=== PATIENT | male | born 1990 | race Caucasian/White ===

== ENCOUNTER 2020-02-25 12:11 | Outpatient (NON) | payer OTHER, SELFPAY ==
[2020-02-25 23:36] LABS: SARS-CoV-2 RNA PCR Negative
== END 2020-02-25 12:12 ==
LOC: ANHCOVIDDT 12:12
PROVIDERS: PCP Internal Medicine; Visit Provider Internal Medicine
DX: Z01.812 Encounter for preprocedural laboratory examination (principal); Z20.828 Contact with and (suspected) exposure to other viral communicable diseases
CPT/HCPCS: 87635; C9803; U0003

== ENCOUNTER 2020-03-30 00:12 | Outpatient (CLI) | payer OTHER, SELFPAY ==
[2020-03-30 20:45] LABS: SARS-CoV-2 RNA PCR Negative
== END 2020-03-30 00:13 | disposition home or self-care (01) ==
LOC: ANHCOVIDDT 00:12
PROVIDERS: PCP Internal Medicine; Visit Provider Internal Medicine Gastroenterology
DX: Z01.818 Encounter for other preprocedural examination (principal); Z20.828 Contact with and (suspected) exposure to other viral communicable diseases
CPT/HCPCS: 87635; C9803; U0003

== ENCOUNTER 2020-04-02 01:40 | Day surgery (SDC) | payer OTHER, SELFPAY ==
[2020-03-23 13:39] VITALS: BMI 28.0
[2020-04-02 11:19] VITALS: BP 136/80; PULSE 97; RESP 16; TEMP 36.9; O2SAT 98
[2020-04-02] MEDS: LACTATED RINGERS 1,000 ML 150 ML IV CONT (11:19)
--- NOTE | 2020-04-02 11:33 | WPDANESEPPF ---
Anes - Initial Pre Proc Eval Procedure: Operation Date: 04/02/20 12:30 Proposed Procedures p Esophagogastroduodenoscopy - Julian Cohen MD Date/Time: 04/02/20 11:33 Surgeon: Julian Cohen MD Pre Op Diagnosis: Gerd,Celiac Disease Patient Data Age: 29 Gender: M Height: 5 ft 9 in Weight: 92.5 kg Last Vital Signs Temp 98.4 F 04/02/20 11:19 Pulse 97 04/02/20 11:19 Resp 16 04/02/20 11:19 BP 136/80 04/02/20 11:19 Pulse Ox 98 04/02/20 11:19 Allergies Allergy/AdvReac Type Severity Reaction Status Date / Time Penicillins Allergy Unknown hives Verified 04/02/20 11:18 Home Medications Medication Instructions Recorded Confirmed Type halobetasol propionate 0.01 1 applic TOPICAL DAILY 02/21/20 03/23/20 History %-tazarotene 0.045 % lotion levocetirizine 5 mg tablet 5 mg PO DAILY 02/21/20 03/23/20 History omeprazole 40 mg capsule,delayed 40 mg PO DAILY #90 cap 02/21/20 03/23/20 Rx release Patient hx anesthesia problems: none Family hx anesthesia problems: none PMFSH Past Medical History Medical History (Updated 02/28/20 @ 15:58 by MARIBELL RobinsN-C) Gastroesophageal reflux disease Social History Social History Smoking packs per day: 1 Smoking cigarettes per day: 20.0 Years smoked: 4 Smoking pack-years: 4.00 Smoking status: Former smoker Tobacco type: cigarettes Alcohol intake: never Substance use: never Substance use type: does not use Living arrangements: with family Gender identity (if verbalized by the patient): Male Spiritual care concerns: No Agree to blood products: Yes Anes - Eval Final PreProcedure Day of Procedure 04/02/20 11:33 Patient weight: overweight Heart: regular rate and rhythm Lungs: clear to auscultation Airway: Mallampati scale class II Neurological: alert and oriented Last oral intake: >/= 8 hours ASA classification: II Emergent: no Anesthetic plan: proceed Anesthesia type and monitoring: general GIVS and standard monitoring Informed Consent: The patient's anesthetic plan and its attendant risks and benefits were discussed with the patient/family/POA. Questions were solicited and answers provided to the satisfaction of the patient/family/POA.
--- NOTE | 2020-04-02 11:57 | PM.HPGS ---
History of Present Illness History of Present Illness Consent: Risks, benefits, and alternatives have been discussed and questions answered. Patient agrees to proceed with procedure. Chief complaint: Gerd,Celiac Disease Narrative: Anruag Huff is a 29 year old male with gerd symptoms recently PCP increased ppi, also celiac disease on diet Review of Systems Constitutional: Constitutional: Denies headache(s) and Denies weakness Eyes: Eyes: Denies blurry vision ENT: Reports Normal hearing present, Denies headache(s) and Denies neck pain Cardiovascular: Cardiovascular: Denies chest pain and Denies dyspnea Respiratory: Respiratory: Denies dyspnea Gastrointestinal: Gastrointestinal: Reports no additional gastrointestinal complaints Genitourinary: Genitourinary: Denies dysuria Musculoskeletal: Musculoskeletal: Denies neck pain Integumentary/Breasts: Skin/Breast: Denies dry skin Neurologic: Reports Normal hearing present, Denies headache(s) and Denies weakness Psychiatric: Psychiatric: Denies anxiety Endocrine: Endocrine: Denies change in body appearance Hematologic/Lymphatic: Hematologic/Lymphatic: Denies easy bleeding Allergic/Immunologic: Allergic/Immunologic: Denies urticaria PMF Past Medical History Medical History (Updated 04/02/20 @ 11:58 by Julian Cohen MD) Celiac disease Gastroesophageal reflux disease Social History Social History Smoking packs per day: 1 Smoking cigarettes per day: 20.0 Years smoked: 4 Smoking pack-years: 4.00 Smoking status: Former smoker Tobacco type: cigarettes Alcohol intake: never Substance use: never Substance use type: does not use Living arrangements: with family Gender identity (if verbalized by the patient): Male Spiritual care concerns: No Agree to blood products: Yes Meds Home Medications and Allergies Home Medications Medication Instructions Recorded Confirmed Type halobetasol propionate 0.01 1 applic TOPICAL DAILY 02/21/20 03/23/20 History %-tazarotene 0.045 % lotion levocetirizine 5 mg tablet 5 mg PO DAILY 02/21/20 03/23/20 History omeprazole 40 mg capsule,delayed 40 mg PO DAILY #90 cap 02/21/20 03/23/20 Rx release Allergies Allergy/AdvReac Type Severity Reaction Status Date / Time Penicillins Allergy Unknown hives Verified 04/02/20 11:18 Vital Signs Vital Signs - 24 hr 04/02/20 11:19 Temperature 98.4 F Pulse Rate 97 Respiratory Rate 16 Blood Pressure 136/80 Pulse Oximetry 98 Exam Const: General: comfortable and no acute distress HENMT: General nose exam: Normal nares present Eyes: General: appearance normal, both eyes and all related structures Neck: Neck: no JVD Resp: Auscultation: clear to auscultation bilaterally Cardio: Rate: regular rate Rhythm: regular rhythm GI: Inspection: non-distended GI Palp: Yes Soft to palpation Skin: General skin exam: normal color Neuro: General: gait normal Speech: normal speech Extrem: General: normal to inspection Psych: Mental Status: mental status grossly normal Assessment and Plan Assessment and plan (1) Gastroesophageal reflux disease: Code(s): K21.9 - Gastro-esophageal reflux disease without esophagitis Status: Acute Assessment and Plan: egd with bx (2) Celiac disease: Code(s): K90.0 - Celiac disease Status: Acute
[2020-04-02 12:01] VITALS: BP 98/59; PULSE 99; RESP 26; O2SAT 97
[2020-04-02 12:11] VITALS: BP 109/69; PULSE 98; RESP 23; O2SAT 98
[2020-04-02 12:27] VITALS: BP 111/71; PULSE 90; RESP 24; O2SAT 96
== END 2020-04-02 12:33 | disposition home or self-care (01) ==
PROVIDERS: PCP Internal Medicine; Visit Provider Internal Medicine Gastroenterology
PROC: 0DJ08ZZ Inspection of Upper Intestinal Tract, Via Natural or Artificial Opening Endoscopic (ICD-10-PCS; CPT 43235; principal; 2020-04-02 12:30)
DX: K21.00 Gastro-esophageal reflux disease with esophagitis, without bleeding (principal); K90.0 Celiac disease; K44.9 Diaphragmatic hernia without obstruction or gangrene; K29.50 Unspecified chronic gastritis without bleeding; K29.80 Duodenitis without bleeding; Z87.891 Personal history of nicotine dependence
CPT/HCPCS: 43239; 88305; 88313; J2704; J7120

== ENCOUNTER 2020-07-10 08:21 | Outpatient (CLI) | payer OTHER, SELFPAY | END 2020-07-10 08:22 | disposition home or self-care (01) | LOC: ANHCOVIDVC 08:21 | PROVIDERS: PCP Internal Medicine | DX: Z23 Encounter for immunization (principal) | CPT/HCPCS: 0001A; 91300 ==

== ENCOUNTER 2020-07-31 08:21 | Outpatient (CLI) | payer OTHER, SELFPAY | END 2020-07-31 08:22 | disposition home or self-care (01) | LOC: ANHCOVIDVC 08:21 | PROVIDERS: PCP Internal Medicine | DX: Z23 Encounter for immunization (principal) | CPT/HCPCS: 0002A; 91300 ==

== ENCOUNTER 2020-07-31 09:13 | Emergency (ER) | payer OTHER, SELFPAY ==
--- NOTE | ~2020-07-31 | XR_ITS ---
EXAMINATION: XR foot LT min 3V DATE: 07/31/2020 09:29 INDICATION: Left second and third toe pain post trauma TECHNIQUE: Dorsoplantar, two oblique and lateral views of the left foot were obtained. COMPARISON: None. FINDINGS: There is soft tissue swelling about the base of the third toe with abnormal contour to the base of th e third middle phalanx suspicious for fracture but without evident lucent fracture line or sharply an gulated cortex to more definitively suggest acute fracture. No other lesions suspicious for fracture identified. Mild osteoarthritis characterized by nonuniform joint space narrowing at a few of the int erphalangeal joints. IMPRESSION: 1. Abnormal contour to the base of the left third middle phalanx which could be developmental or seco ndary to fracture which could be either acute or chronic. Reviewed, dictated and finalized at location A. IMPRESSION: 1. Abnormal contour to the base of the left third middle phalanx which could be developmental or secondary to fracture which could be either acute or chronic.
[2020-07-31 09:23] VITALS: BP 127/84; PULSE 78; RESP 16; TEMP 37.1; O2SAT 100
--- NOTE | 2020-07-31 09:35 | ED.GENADULT ---
HPI - General Adult General Chief complaint: Extremity Injury, Lower Stated complaint: INJURED L FOOT Time Seen by Provider: 07/31/20 09:23 Source: patient and RN notes reviewed Mode of arrival: ambulatory Limitations: no limitations History of Present Illness HPI narrative: 29-year-old male presents with left 1st-3rd toe pain for 1 day. Anurag reports having LT foot slammed by bathroom door this morning now has increasing pain. Aleve prior to arrival without relief. Hurts to bear weight. No radiation of pain. No numbness or tingling or loss of mobility. Denies inability to bear weight. 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 No relieving factor. No fever or chills. No suspected foreign body. The patient reports he have not been diagnosed with COVID-19. The patient reports he received 2 [employer] COVID-19 vaccines. The patient reports he is not waiting for the results of a COVID-19 lab test. The patient reports he do not have weakness or fatigue. The patient reports he do not have a new or worsening cough or shortness of breath. Denies chest pain. The patient reports he do not have any rhinorrhea, congestion, loss of taste or smell, sore throat, nausea, vomiting, abdominal pain, and diarrhea. Tolerating po intake well. Denies recent traveling. Denies concerns for COVID-19 or exposures been home with limited outdoor exposure except for essential household needs, work, and return home. At this time, patient is not suspected of having COVID-19. Some parts of this dictation were generated by voice recognition software and may contain typographical and/or grammatical inaccuracies. Related Data Allergies Allergy/AdvReac Type Severity Reaction Status Date / Time Penicillins Allergy Unknown hives Verified 05/29/20 08:26 Review of Systems Review of Systems: Narrative: CONSTITUTIONAL: Denies fever, chills, sweats. EYES: Denies visual changes, redness, discharge. ENT: Denies rhinorrhea, congestion, sore throat, otalgia. CARDIOVASCULAR: Denies chest pain, palpitations, edema. RESPIRATORY: Denies dyspnea, wheezing, cough. GASTROINTESTINAL: Denies abdominal pain, nausea, vomiting, diarrhea. SKIN: Denies rash or itching. MUSCULOSKELETAL: Denies acute back pain or myalgia. Complains of LT 1st-3rd toe pain. NEUROLOGIC: Denies numbness or focal weakness. PSYCHIATRIC: Denies anxiety or depression. All systems reviewed & are unremarkable except as noted in HPI and below. [facility] Past Medical History Medical History (Updated 08/01/20 @ 00:00 by Laquita Momin) Allergies Celiac disease Elevated blood pressure reading Gastroesophageal reflux disease Other and unspecified hyperlipidemia Psoriasis Surgical History Surgical History (Updated 07/31/20 @ 13:27 by TINO Royal) History of left knee surgery Due to a torn patella Family History Family History (Updated 07/31/20 @ 13:34 by TINO Royal) Father Psoriasis Mother Alive and well Social History Social History (Updated 07/31/20 @ 13:35 by TINO Royal) Smoking packs per day: 1 Smoking cigarettes per day: 20.0 Years smoked: 4 Smoking pack-years: 4.00 Smoking status: Former smoker Tobacco type: cigarettes Second hand tobacco smoke exposure: No Smoking end date: 05/01/13 Alcohol intake: current Substance use: never Substance use type: does not use Gender identity (if verbalized by the patient): Male Spiritual care concerns: No Agree to blood products: Yes Comments At time of signature, agree with nurse past medical, surgical, social, and family history. There is no relevant family history pertinent to the presenting complaint. Exam Narrative: Exam Narrative: GENERAL: This is a well-nourished, well-developed patient, in no apparent distress. HEAD: Normocephalic, atraumatic. EYES: PERRL. Sclera clear/white. Vision is grossly intact. CARDIOVASCULAR: Regular rate and rhythm without murmurs, ga
== END 2020-07-31 10:19 | disposition home or self-care (01) ==
PROVIDERS: Emergency Provider Nurse Practitioner Family; PCP Internal Medicine
DX: S90.32XA Contusion of left foot, initial encounter (principal); W23.0XXA Caught, crushed, jammed, or pinched between moving objects, initial encounter; S92.535A Nondisplaced fracture of distal phalanx of left lesser toe(s), initial encounter for closed fracture; Z87.891 Personal history of nicotine dependence; K21.9 Gastro-esophageal reflux disease without esophagitis; K90.0 Celiac disease
CPT/HCPCS: 73630; 99213; G0463

== ENCOUNTER 2021-03-28 12:30 | Emergency (ER) | payer OTHER, SELFPAY ==
--- NOTE | 2021-03-28 12:42 | ED.GENADULT ---
HPI - General Adult General Chief complaint: Upper Respiratory Infection Stated complaint: bodyaches and chills Time Seen by Provider: 03/28/21 12:42 Source: patient Mode of arrival: ambulatory Limitations: no limitations History of Present Illness HPI narrative: 30-year-old male patient presents to the [facility] with complaints of body aches chills and fever that started abruptly today while at religious. Patient states that start about 10 minutes into religious and started feeling very cold achy and patient states he left religious earlier today went home took his temperature and it was 101 and got as high as 102. Patient states he did take some DayQuil which he is feeling much better. Patient states he has not yet had his flu vaccine this year but is fully vaccinated for Covid with a 2 dose regiment. Denies being an coming in contact with anybody with Covid that he is aware of. Related Data Allergies Allergy/AdvReac Type Severity Reaction Status Date / Time Penicillins Allergy Unknown hives Verified 10/01/20 09:23 Review of Systems Review of Systems: CONSTITUTIONAL: Positive fever, body aches and chills, denies sweats. EYES: Denies visual changes, redness, or discharge. ENT: Denies rhinorrhea, congestion, sore throat, or otalgia. CARDIOVASCULAR: Denies chest pain, palpitations, or edema. RESPIRATORY: Denies cough or dyspnea. GASTROINTESTINAL: Denies abdominal pain, nausea, vomiting, or diarrhea. GENITOURINARY: Denies dysuria or hematuria. SKIN: Denies rash or itching. MUSCULOSKELETAL: Denies back pain, joint pain, or myalgia. NEUROLOGIC: Denies headache, numbness, or weakness. PSYCHIATRIC: Denies anxiety or depression. [facility] Past Medical History Medical History Allergies Celiac disease Elevated blood pressure reading Gastroesophageal reflux disease Other and unspecified hyperlipidemia Psoriasis Surgical History Surgical History History of left knee surgery Due to a torn patella tendon (x5 surgeries) - most recent was 2011 Family History Family History Father Psoriasis Mother Alive and well Social History Social History Smoking packs per day: 1 Smoking cigarettes per day: 20.0 Years smoked: 4 Smoking pack-years: 4.00 Smoking status: Former smoker Tobacco type: cigarettes Second hand tobacco smoke exposure: No Smoking end date: 05/01/13 Alcohol intake: current Alcohol use details: 1-2 glasses of wine monthly Substance use: never Substance use type: does not use Gender identity (if verbalized by the patient): Male Sexual Orientation (if Verbalized by the Patient): Straight or Heterosexual Spiritual care concerns: No Agree to blood products: Yes Comments At the time of my signature I agree with nursing past medical history, surgical, social, and family history. There is no relevant family history pertinent to the presenting complaint. Exam Narrative: GENERAL: Well-appearing, well-nourished, and in no acute distress. HEAD: Normocephalic, atraumatic. EYES: PERRLA and EOMI. ENT: Nares clear, no rhinorrhea or epistaxis. Mucous membranes moist. Posterior pharynx with no erythema, tonsillar edema, exudates or lesions present. Bilateral TMs are clear with no erythema or foreign bodies in the canal. NECK: Supple. No lymphadenopathy CHEST: Clear to auscultation. No respiratory distress. HEART: Regular rate and rhythm. No murmur heard. Normal peripheral pulses. ABDOMEN: Soft, nontender, nondistended, normal active bowel sounds. EXTREMITIES: Normal range of motion. No edema. SKIN: Warm, dry, no rash. NEURO: No focal deficits. Alert and oriented x3. Course Reevaluation(s) Reevaluation #1: Reevaluated patient notified him that his flu today is negative. We will send off a
[2021-03-28 12:54] VITALS: BP 127/71; PULSE 112; RESP 18; TEMP 37.5; O2SAT 99
[2021-03-29 20:04] LABS: SARS-CoV-2 RNA PCR Negative
== END 2021-03-28 13:32 | disposition home or self-care (01) ==
PROVIDERS: Emergency Provider Nurse Practitioner Family; PCP Internal Medicine
DX: J06.9 Acute upper respiratory infection, unspecified (principal); Z20.822 Contact with and (suspected) exposure to COVID-19; Z87.891 Personal history of nicotine dependence; K21.9 Gastro-esophageal reflux disease without esophagitis; K90.0 Celiac disease
CPT/HCPCS: 87804; 99213; C9803; G0463; U0003; U0005

== ENCOUNTER 2021-07-20 20:42 | Emergency (ER) | payer OTHER, SELFPAY ==
[2021-07-20 20:40] VITALS: BP 123/73; PULSE 86; RESP 18; TEMP 36.8; O2SAT 100
[2021-07-20 20:58] LABS: Basophils Percent Auto 0.2 % (0.2-1.2); Eosinophils Percent Auto 0.3 % (0-4.4); Hematocrit 42.5 % (42.0-52.0); Hemoglobin 14.5 g/dL (14.0-18.0); Immature Granulocyte Absolute 0.03 K/mm3 (0.00-0.031); Immature Granulocyte Percent A 0.2 % (0-0.5); Lymphocytes Absolute Auto 0.51 K/mm3 (0.9-3.2); Lymphocytes Percent Auto 3.8 % (18.3-44.2); Mean Corpuscular HGB Conc 34.1 g/dl (32-36); Mean Corpuscular Hemoglobin 31.3 pg (26-34); Mean Corpuscular Volume 91.6 fl (80-100); Mean Platelet Volume 8.9 fl (7.4-10.4); Monocytes Absolute Auto 0.7 K/mm3 (0.1-0.6); Monocytes Percent Auto 5.5 % (2.6-8.5); Platelet Count Result 294 k/mm3 (150-375); Red Blood Count 4.64 M/mm3 (4.6-6.20); Red Cell Distribution Width 12.2 % (11.5-14.5); White Blood Count 13.3 K/mm3 (4.5-10.0)
[2021-07-20 21:15] LABS: Alanine Aminotransferase 41 U/L (4-50); Albumin Level 4.5 g/dL (3.5-5.1); Alkaline Phosphatase 99 U/L (38-126); Anion Gap 9 mmol/L (8-16); Aspartate Amino Transferase 38 U/L (17-59); Bilirubin,Total 0.9 mg/dL (0.2-1.3); Blood Urea Nitrogen 11 mg/dL (9-20); Calcium 8.7 mg/dL (8.4-10.2); Carbon Dioxide 21 mmol/L (22-30); Chloride 108 mmol/L (98-107); Estimated CRCL calculation 116 ml/min; Estimated Glomerular Filt Rate > 60; Glucose 129 mg/dL (65-110); Lipase 54 U/L (23-300); Potassium 3.2 mmol/L (3.4-5.0); Sodium 138 mmol/L (137-145)
[2021-07-20] MEDS: ONDANSETRON INJ 4 MG/2 ML VIAL 8 MG IV PUSH (21:21)
[2021-07-20] MEDS: SODIUM CHLORIDE 0.9% IV 1,000 ML 999 ML IV CONT ×2 (21:22)
[2021-07-20 21:25] VITALS: BP 109/76; PULSE 86; RESP 18; O2SAT 100
--- NOTE | 2021-07-20 21:30 | ED.NAVMDI ---
HPI - Nausea/Vomiting/Diarrhea General Chief complaint: Nausea/Vomiting/Diarrhea Stated complaint: n/v/d x 2 days Time Seen by Provider: 07/20/21 20:48 Source: patient Mode of arrival: ambulatory Limitations: no limitations History of Present Illness HPI Narrative: Patient is a 30 years old white male presented to the ED with diarrhea that started last night, at least 25 episodes so far, today started having vomiting in the last 3 hours at least 8 episodes so far. Patient denies fever, chills, abdominal pain or back pain. Patient denies sick contact. Patient travels for work. History of celiac disease and GERD. Patient does not smoke or drink or uses drugs Related Data Allergies Allergy/AdvReac Type Severity Reaction Status Date / Time Penicillins Allergy Unknown hives Verified 10/01/20 09:23 Review of Systems Review of Systems: CONSTITUTIONAL: Denies fever, chills, or sweats. EYES: Denies visual changes, redness, or discharge. ENT: Denies rhinorrhea, congestion, sore throat, or otalgia. CARDIOVASCULAR: Denies chest pain, palpitations, or edema. RESPIRATORY: Denies cough or dyspnea. GASTROINTESTINAL: Denies abdominal pain, nausea, vomiting, or diarrhea. GENITOURINARY: Denies dysuria or hematuria. SKIN: Denies rash or itching. MUSCULOSKELETAL: Denies back pain, joint pain, or myalgia. NEUROLOGIC: Denies headache, numbness, or weakness. PSYCHIATRIC: Denies anxiety or depression. [facility] Past Medical History Medical History Allergies Celiac disease Elevated blood pressure reading Gastroesophageal reflux disease Other and unspecified hyperlipidemia Psoriasis Surgical History Surgical History History of left knee surgery Due to a torn patella tendon (x5 surgeries) - most recent was 2011 Family History Family History Father Psoriasis Mother Alive and well Social History Social History Smoking packs per day: 1 Smoking cigarettes per day: 20.0 Years smoked: 4 Smoking pack-years: 4.00 Smoking status: Former smoker Tobacco type: cigarettes Second hand tobacco smoke exposure: No Smoking end date: 05/01/13 Alcohol intake: current Alcohol use details: 1-2 glasses of wine monthly Substance use: never Substance use type: does not use Gender identity (if verbalized by the patient): Male Sexual Orientation (if Verbalized by the Patient): Straight or Heterosexual Spiritual care concerns: No Agree to blood products: Yes Exam Narrative: General appearance: Well-developed, well-nourished Skin: Normal color Head: Normocephalic, nontraumatic Eyes: Clear conjunctiva ENT: Oropharynx normal, ears normal, nose normal Neck: Supple, nontender Chest and respiratory: Airway patent, no respiratory distress, no accessory muscle use Heart: Regular rate/rhythm Abdomen: Soft, nontender, no organomegaly, hyperactive bowel sounds Vascular: Normal peripheral pulses, normal capillary refill. 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
[2021-07-20 22:22] VITALS: BP 113/80; PULSE 118; RESP 18; O2SAT 100
[2021-07-20] MEDS: POTASSIUM CHLORIDE 20 MEQ TABLET 40 MEQ PO (22:22)
[2021-07-20 23:08] VITALS: BP 116/81; PULSE 94; RESP 18; O2SAT 100
== END 2021-07-20 23:08 | disposition home or self-care (01) ==
LOC: ANHED 22:32
PROVIDERS: Emergency Medicine; Emergency Provider Emergency Medicine; PCP Internal Medicine
DX: K52.9 Noninfective gastroenteritis and colitis, unspecified (principal); E87.6 Hypokalemia; K90.0 Celiac disease; K21.9 Gastro-esophageal reflux disease without esophagitis; E78.5 Hyperlipidemia, unspecified; L40.9 Psoriasis, unspecified; Z87.891 Personal history of nicotine dependence
CPT/HCPCS: 36415; 80053; 83690; 85025; 96361; 96374; 99284; A9270; J2405; J7030

== ENCOUNTER 2021-07-21 17:50 | Emergency (ER) | payer OTHER, SELFPAY ==
[2021-07-21 18:00] VITALS: BP 111/68; PULSE 97; RESP 18; TEMP 36.6; O2SAT 100
--- NOTE | 2021-07-21 18:21 | ED.NAVMDI ---
HPI - Nausea/Vomiting/Diarrhea General Chief complaint: Nausea/Vomiting/Diarrhea Stated complaint: diarrhea Time Seen by Provider: 07/21/21 18:22 Source: patient, RN notes reviewed and old records reviewed Mode of arrival: ambulatory Limitations: no limitations History of Present Illness HPI Narrative: 30-year-old male who [facility] with complaints of at least 10 watery yellow-tinged liquid stools in the last 2 hours. Patient reports that yesterday evening and had 20 loose stools in about 2 hour interval got dizzy and passed out and hit his head on book shelf with a contusion to his right frontal region. He went to ER and while there had nausea and vomiting about 8 times and received fluids and was found to be low in potassium and was sent home with medications for nausea and vomiting and for potassium supplementation. Patient has history of celiac disease and has been doing well also has some GERD and had an endoscopy by Dr Mack and is on omeprazole. He reports that he called Dr Mack's office and soonest he can get in is next week. Patient reports that he still has nausea but no vomiting today,has been drinking water eating Jello had some mashed potatoes and pudding s taking the Zofran. Has taken 4 doses of Imodium today so far. Patient reports that he had had COVID vaccinations but no flu shot this year. MD elicited complaint: nausea and diarrhea Pertinent past history: other (celiac disease) Onset (ago): day(s) (2) Description of diarrhea: watery and other (yellow) Location of pain: other (crampy mid abdominal area) Treatment prior to arrival: immodium and other (zofran) Related Data Allergies Allergy/AdvReac Type Severity Reaction Status Date / Time Penicillins Allergy Unknown hives Verified 07/21/21 18:11 Review of Systems Review of Systems: CONSTITUTIONAL: Denies fever, chills, or sweats. EYES: Denies visual changes, redness, or discharge. ENT: Denies rhinorrhea, congestion, sore throat, or otalgia. CARDIOVASCULAR: Denies chest pain, palpitations, or edema. RESPIRATORY: Denies cough or dyspnea. GASTROINTESTINAL: Reports crampy type of abdominal pain, nausea,no recent vomiting,positive for yelowish diarrhea stool with no blood noted GENITOURINARY: Denies dysuria or hematuria. SKIN: Denies rash or itching. MUSCULOSKELETAL: Denies back pain, joint pain, or myalgia. NEUROLOGIC: Denies headache, numbness, or weakness. PSYCHIATRIC: Denies anxiety or depression. All systems reviewed & are unremarkable except as noted in HPI and below PMFSH Past Medical History Medical History Allergies Celiac disease Elevated blood pressure reading Gastroesophageal reflux disease Other and unspecified hyperlipidemia Psoriasis Surgical History Surgical History History of left knee surgery Due to a torn patella tendon (x5 surgeries) - most recent was 2011 Family History Family History Father Psoriasis Mother Alive and well Social History Social History Smoking packs per day: 1 Smoking cigarettes per day: 20.0 Years smoked: 4 Smoking pack-years: 4.00 Smoking status: Former smoker Tobacco type: cigarettes Second hand tobacco smoke exposure: No Smoking end date: 05/01/13 Alcohol intake: current Alcohol use details: 1-2 glasses of wine monthly Substance use: never Substance use type: does not use Gender identity (if verbalized by the patient): Male Sexual Orientation (if Verbalized by the Patient): Straight or Heterosexual Spiritual care concerns: No Agree to blood products: Yes Comments At time of signature, agree with nursing past medical, surgical, social and family history. There is no relevant family history pertinent to the presenting complaint Exam Narrative
--- NOTE | 2021-07-21 18:56 | PC.NURSE ---
1844- Stool culture ordered per Dr. Kramer. Contacted Willard in lab [id number] for instruction on how to order and what to send specimen in.
== END 2021-07-21 19:20 | disposition home or self-care (01) ==
PROVIDERS: Emergency Provider Registered Nurse; PCP Internal Medicine
DX: R19.7 Diarrhea, unspecified (principal); K90.0 Celiac disease; Z87.891 Personal history of nicotine dependence; K21.9 Gastro-esophageal reflux disease without esophagitis
CPT/HCPCS: 87045; 87427; 87804; 99213; G0463

== ENCOUNTER 2022-07-03 18:05 | Emergency (ER) | payer OTHER, SELFPAY ==
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
[2022-07-03 18:15] VITALS: BP 135/77; PULSE 90; RESP 18; TEMP 36.5; O2SAT 98
== END 2022-07-03 18:36 | disposition home or self-care (01) ==
PROVIDERS: Emergency Provider Nurse Practitioner Family; PCP Internal Medicine
DX: S05.01XA Injury of conjunctiva and corneal abrasion without foreign body, right eye, initial encounter (principal); X58.XXXA Exposure to other specified factors, initial encounter; K21.9 Gastro-esophageal reflux disease without esophagitis; K90.0 Celiac disease; L40.9 Psoriasis, unspecified; Z87.891 Personal history of nicotine dependence
CPT/HCPCS: 99213; A9270; G0463

== ENCOUNTER 2022-08-12 08:26 | Emergency (ER) | payer OTHER, SELFPAY ==
--- NOTE | ~2022-08-12 | XR_ITS ---
Clinical Indication: Chest tightness PA and lateral views of the chest: Comparison: None Findings: The lungs are clear, without evidence of focal consolidation or pleural effusion. Cardiome diastinal silhouette is within normal limits. Bones and soft tissues are unremarkable. Impression: Normal chest. Reviewed, dictated and finalized at location . Impression: Normal chest.
--- NOTE | 2022-08-12 08:29 | ECG_ITS ---
Measurements Intervals [place] Rate: 101 P: 7 CO: 162 QRS: -4 QRSD: 85 T: -7 QT: 320 QTc: 416 Interpretive Statements SINUS TACHYCARDIA POOR R-WAVE PROGRESSION BORDERLINE ECG NO PREVIOUS ECG AVAILABLE FOR COMPARISON Electronically Signed On 08-12-2022 16:45:20 CDT by Monroe Kumar M.D.
[2022-08-12 08:30] VITALS: BP 137/93; PULSE 95; RESP 14; O2SAT 99
[2022-08-12] MEDS: ASPIRIN 81 MG CHEWABLE TABLET 324 MG PO (08:42)
[2022-08-12 08:45] VITALS: O2SAT 98
[2022-08-12 08:47] LABS: Basophils Percent Auto 0.2 % (0.2-1.2); Eosinophils Absolute Auto 0.1 K/mm3 (0-0.3); Eosinophils Percent Auto 0.4 % (0-4.4); Hematocrit 42.9 % (42.0-52.0); Hemoglobin 14.4 g/dL (14.0-18.0); Immature Granulocyte Absolute 0.05 K/mm3 (0.00-0.031); Immature Granulocyte Percent A 0.3 % (0-0.5); Lymphocytes Absolute Auto 1.61 K/mm3 (0.9-3.2); Lymphocytes Percent Auto 10.3 % (18.3-44.2); Mean Corpuscular HGB Conc 33.6 g/dl (32-36); Mean Corpuscular Hemoglobin 31.2 pg (26-34); Mean Corpuscular Volume 92.9 fl (80-100); Mean Platelet Volume 9.1 fl (7.4-10.4); Monocytes Absolute Auto 0.9 K/mm3 (0.1-0.6); Monocytes Percent Auto 5.9 % (2.6-8.5); Neutrophils Percent Auto 82.9 % (45.5-73.1); Platelet Count Result 343 k/mm3 (150-375); Red Blood Count 4.62 M/mm3 (4.6-6.20); Red Cell Distribution Width 12.3 % (11.5-14.5); White Blood Count 15.7 K/mm3 (4.5-10.0)
[2022-08-12 08:55] LABS: Alanine Aminotransferase 72 U/L (6-50); Alkaline Phosphatase 113 U/L (38-126); Anion Gap 12 mmol/L (8-16); Aspartate Amino Transferase 73 U/L (17-59); Bilirubin,Total 0.7 mg/dL (0.2-1.3); Blood Urea Nitrogen 15 mg/dL (9-20); Calcium 9.8 mg/dL (8.4-10.2); Carbon Dioxide 25 mmol/L (22-30); Chloride 103 mmol/L (98-107); Estimated CRCL calculation 115 ml/min; Estimated Glomerular Filt Rate > 60; Glucose 105 mg/dL (65-110); INR 0.9; Lipase 110 U/L (23-300); Potassium 4.2 mmol/L (3.4-5.0); Prothrombin Time 12.1 Seconds (11.1-14.7); Sodium 140 mmol/L (137-145)
[2022-08-12 08:56] LABS: Partial Thromboplastin Time 30.9 SECONDS (22.3-36.8)
--- NOTE | 2022-08-12 09:00 | ED.CHESTPAIN ---
HPI - Chest Pain General Chief Complaint: Chest Pain Stated Complaint: chest pain Time Seen by Provider: 08/12/22 09:00 Source: patient Mode of arrival: ambulatory Limitations: no limitations History of Present Illness HPI narrative: Patient woke up this morning with midline chest tightness lasted up to 20 minutes and has been off and on since. Got worse after drinking coffee, nothing make it better. Currently is pain-free. He denies any fever, chills, nausea, vomiting, shortness of breath. History of similar symptoms in the past but usually lasts up to 10 seconds this 1 lasted longer. History of GERD on omeprazole 40 mg once a day. He denies smoking, drinking or any family history of coronary artery disease. 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 Related Data Allergies Allergy/AdvReac Type Severity Reaction Status Date / Time Penicillins Allergy Unknown hives Verified 08/12/22 13:10 Review of Systems Review of Systems: All systems reviewed & are unremarkable except as noted in HPI and below PMFSH Past Medical History Medical History Allergies Celiac disease Diarrhea Elevated blood pressure reading Gastroesophageal reflux disease Other and unspecified hyperlipidemia Overweight (BMI 25.0-29.9) Psoriasis Surgical History Surgical History History of left knee surgery Due to a torn patella tendon (x5 surgeries) - most recent was 2011 Family History Family History Father Psoriasis Mother Alive and well Social History Social History Smoking packs per day: 1 Smoking cigarettes per day: 20.0 Years smoked: 4 Smoking pack-years: 4.00 Smoking status: Former smoker Tobacco type: cigarettes Second hand tobacco smoke exposure: No Smoking end date: 05/01/13 Alcohol intake: current Alcohol use details: 1-2 glasses of wine monthly Substance use: never Substance use type: does not use Lack of Transportation: No Lack of Food: Never True Current Housing: I Have Housing Concerned About Future Housing: No Difficulty Paying Gas/Electric Bills: No Difficulty Paying for Meds: No Currently Unemployed: No Education: Master's Degree or Higher Difficulty w/ Childcare or Family Care: No Living arrangements: with family Occupation/Education: occupation Gender identity (if verbalized by the patient): Male Sexual Orientation (if Verbalized by the Patient): Straight or Heterosexual Spiritual care concerns: No Agree to blood products: Yes Exam Narrative: General appearance: Well-developed, well-nourished Skin: Normal color Head: Normocephalic, nontraumatic Eyes: Clear conjunctiva ENT: Oropharynx normal, ears normal, nose normal Neck: Supple, nontender Chest and respiratory: Airway patent, no respiratory distress, no accessory muscle use Heart: Regular rate/rhythm Abdomen: Soft, nontender, no organomegaly, quiet bowel sounds Vascular: Normal peripheral pulses, normal capillary refill. 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
[2022-08-12 09:07] LABS: Troponin I < 0.012 ng/mL (0.000-0.034)
[2022-08-12] MEDS: BELLADONNA ALK/PHENOB ELIX 10 ML, MAG HYDROX/ALUMINUM HYD/SIMETH 30 ML, LIDOCAINE HCL 2... PO (09:30)
--- NOTE | 2022-08-12 10:43 | PC.NURSE ---
Patient reports that he experienced relief with the GI cocktail.
[2022-08-12 10:46] VITALS: BP 116/77; PULSE 82; RESP 12; O2SAT 97
[2022-08-12 11:06] VITALS: BP 129/88; PULSE 71; RESP 14; O2SAT 97
[2022-08-12 11:46] LABS: Troponin I < 0.012 ng/mL (0.000-0.034)
[2022-08-12 12:31] VITALS: BP 126/77; PULSE 72; RESP 20; O2SAT 99
== END 2022-08-12 13:14 | disposition home or self-care (01) ==
PROVIDERS: Emergency Provider Emergency Medicine; PCP Internal Medicine
DX: R07.89 Other chest pain (principal); K90.0 Celiac disease; K21.9 Gastro-esophageal reflux disease without esophagitis; E78.5 Hyperlipidemia, unspecified; E66.3 Overweight; Z68.29 Body mass index [BMI] 29.0-29.9, adult; L40.9 Psoriasis, unspecified; R03.0 Elevated blood-pressure reading, without diagnosis of hypertension; Z88.0 Allergy status to penicillin; Z87.891 Personal history of nicotine dependence; R00.0 Tachycardia, unspecified; R94.31 Abnormal electrocardiogram [ECG] [EKG]
CPT/HCPCS: 36415; 71046; 80053; 83690; 84484; 85025; 85610; 85730; 93005; 99284; A9270

== ENCOUNTER 2023-07-31 21:22 | Emergency (ER) | payer MEDICARE, OTHER, MEDICAID, SELFPAY ==
[2023-07-31 21:25] VITALS: BP 109/65; PULSE 114; RESP 18; TEMP 37.3; O2SAT 99
[2023-07-31 21:38] LABS: Hematocrit 43.5 % (42.0-52.0); Hemoglobin 15.2 g/dL (14.0-18.0); Mean Corpuscular HGB Conc 34.9 g/dl (32-36); Mean Corpuscular Hemoglobin 30.6 pg (26-34); Mean Corpuscular Volume 87.7 fl (80-100); Mean Platelet Volume 8.9 fl (7.4-10.4); Platelet Count Result 306 k/mm3 (150-375); Red Blood Count 4.96 M/mm3 (4.6-6.20); Red Cell Distribution Width 12.7 % (11.5-14.5)
[2023-07-31 21:48] LABS: Alanine Aminotransferase 36 U/L (6-50); Albumin Level 4.6 g/dL (3.5-5.1); Alkaline Phosphatase 107 U/L (38-126); Anion Gap 11 mmol/L (4-12); Aspartate Amino Transferase 31 U/L (17-59); Band Neutrophils Percent 4 % (0-6); Bilirubin,Total 1.1 mg/dL (0.2-1.3); Blood Urea Nitrogen 17 mg/dL (9-20); Calcium 9.4 mg/dL (8.4-10.2); Carbon Dioxide 19 mmol/L (22-30); Chloride 103 mmol/L (98-107); Eosinophils Absolute Manual 0.24 K/mm3 (0.02-0.50); Eosinophils Percent Manual 2 % (0-4); Estimated CRCL calculation 129 ml/min; Estimated Glomerular Filt Rate > 60; Glucose 109 mg/dL (65-110); Lipase 67 U/L (23-300); Lymphocytes Absolute Manual 0.48 K/mm3 (1.1-4.5); Monocytes Absolute Manual 0.36 K/mm3 (0.1-0.90); Monocytes Percent Manual 3 % (3-9); Neutrophils Absolute Manual 10.92 K/mm3 (1.3-6.7); Neutrophils Percent Manual 87 % (46-73); Platelet Estimate Adequate (Adequate); Potassium 3.9 mmol/L (3.4-5.0); Schistocytes None Seen; Sodium 133 mmol/L (137-145); Total Cells Counted 100
[2023-07-31 23:15] VITALS: PULSE 114; RESP 20; O2SAT 96
[2023-07-31 23:16] VITALS: BP 127/66; PULSE 113; RESP 17; O2SAT 96
[2023-07-31 23:17] VITALS: BP 127/66; PULSE 118; RESP 14; TEMP 37; O2SAT 95
[2023-07-31 23:32] VITALS: PULSE 108; RESP 20; O2SAT 97
--- NOTE | 2023-07-31 23:48 | ED_ITS ---
HPI - General Adult General Chief complaint: Nausea/Vomiting/Diarrhea Stated complaint: n/v/d x 2hours Time Seen by Provider: 07/31/23 23:13 Source: patient Mode of arrival: EMS Limitations: no limitations History of Present Illness HPI narrative: This is a 32-year-old male with history of celiac who presents to the ED with chief complaint of N/V/D onset today. Reports that his is home sick with similar symptoms. Patient reports that he was starting to feel lightheaded thought he might pass out so he called EMS. Reports multiple episodes of vomiting and diarrhea but no GI bleeding symptoms. Endorses cramping worse with movements. Denies any recent hospitalization or antibiotics. Denies any suspe cted food association. Denies fevers, chills, chest pain, dyspnea, cough, back pain. Denies syncope Related Data Allergies Allergy/AdvReac Type Severity Reaction Status Date / Time Penicillins Allergy Unknown hives Verified 07/31/23 21:23 wheat AdvReac Other Verified 07/31/23 21:24 Review of Systems Review of Systems: All systems as dictated in HPI [facility] Past Medical History Medical History Allergies Celiac disease Diarrhea Elevated blood pressure reading Gastroesophageal reflux disease Other and unspecified hyperlipidemia Overweight (BMI 25.0-29.9) Psoriasis Surgical History Surgical History History of left knee surgery Due to a torn patella tendon (x5 surgeries) - most recent was 2011 Family History Family History Father Psoriasis Mother Alive and well Social History Social History Smoking packs per day: 1 Smoking cigarettes per day: 20.0 Years smoked: 4 Smoking pack-years: 4.00 Smoking status: Former smoker Tobacco type: cigarettes Second hand tobacco smoke exposure: No Smoking end date: 05/01/13 Alcohol intake: current Alcohol use details: 1-2 glasses of wine monthly Substance use: never Substance use type: does not use Lack of Transportation: No Lack of Food: Never True Current Housing: I Have Housing Concerned About Future Housing: No Difficulty Paying Gas/Electric Bills: No Difficulty Paying for Meds: No Currently Unemployed: No Education: Master's Degree or Higher Difficulty w/ Childcare or Family Care: No Living arrangements: with family Occupation/Education: occupation Gender identity (if verbalized by the patient): Male Sexual Orientation (if Verbalized by the Patient): Straight or Heterosexual Spiritual care concerns: No Agree to blood products: Yes Exam Narrative: GENERAL: Well-appearing, well-nourished, and in no acute distress. HEAD: Normocephalic, atraumatic. EYES: PERRLA and EOMI. ENT: Nares clear, no rhinorrhea or epistaxis. Mucous membranes moist. Oropharynx without tonsillar hypertrophy exudate or other lesions. NECK: Supple. No adenopathy or masses. CHEST: No respiratory distress. Clear to auscultation. No wheezes rales or rhonchi HEART: Regular rate and rhythm. No murmur heard. Normal peripheral pulses. ABDOMEN: Soft, nontender, nondistended, normal active bowel sounds. MSK: Normal range of motion. No edema. SKIN: Warm, dry, no rash. NEURO: Alert and oriented x3. No focal deficits. PSYCH: Normal mood and affect. Course Vital Signs Vital signs: Vital Signs Temperature 99.2 F 07/31/23 21:25 Pulse Rate 114 H 07/31/23 21:25 Respiratory Rate 18 07/31/23 21:25 Blood Pressure 109/65 07/31/23 21:25 Pulse Oximetry 99 07/31/23 21:25 Oxygen Delivery Room Air 07/31/23 21:25 Temperature 98.6 F 07/31/23 23:17 Pulse Rate 86 08/01/23 00:11 Respiratory Rate 20 07/31/23 23:32 Blood Pressure 121/86 08/01/23 00:11 Pulse Oximetry 97 07/31/23 23:32 Oxygen Delivery Room Air 07/31/23 21:25 Medical Decision Making MDM Narrative Medical decision making narrative: This is a 32-year-old male who presents to the ED with chief complaint of N/V/D onset today. Vitals show initial slight tachycardia but otherwise normal. Exam is overall benign. No evidence of acute abdomen on exam. Lab work shows mildly elevated white count of 12. CMP largely unremarkable. UA shows evidence of slight dehydration with 1+ ketones. At the time my arrival patient is actually feeling much improved compared to initial onset. He still remains a little tachycardic so was given a L of fluids and had good effect with this. Symptoms consistent with gastroenteritis. Tolerating p.o.. Rx for Zofran given. Pt will be discharged in stable condition. Return precautions given and supportive measures discussed. Pt is understanding and agreeable with plan for discharge and follow-up with PCP. Vital Signs Vital Signs: Vital Signs Temperature 99.2 F 07/31/23 21:25 Pulse Rate 114 H 07/31/23 21:25 Respiratory Rate 18 07/31/23 21:25 Blood Pressure 109/65 07/31/23 21:25 Pulse Oximetry 99 07/31/23 21:25 Oxygen Delivery Room Air 07/31/23 21:25 Temperature 98.6 F 07/31/23 23:17 Pulse Rate 86 08/01/23 00:11 Respiratory Rate 20 07/31/23 23:32 Blood Pressure 121/86 08/01/23 00:11 Pulse Oximetry 97 07/31/23 23:32 Oxygen Delivery Room Air 07/31/23 21:25 Lab Data 07/31/23 21:33 07/31/23 21:33 Labs: Lab Results 07/31/23 08/01/23 Range/Units 21:33 00:36 WBC 12.0 H (4.5-10.0) K/mm3 RBC 4.96 (4.6-6.20) M/mm3 Hgb 15.2 (14.0-18.0) g/dL Hct 43.5 (42.0-52.0) % MCV 87.7 (80-100) fl MCH 30.6 (26-34) pg MCHC 34.9 (32-36) g/dl RDW 12.7 (11.5-14.5) % Plt Count 306 (150-375) k/mm3 MPV 8.9 (7.4-10.4) fl Immature Gran % (Auto) Not Reportable Neut % (Auto) Not Reportable Lymph % (Auto) Not Reportable Eagle % (Auto) Not Reportable Eos % (Auto) Not Reportable Baso % (Auto) Not Reportable Lymph # (Auto) Not Reportable [place] # (Auto) Not Reportable Eos # (Auto) Not Reportable Baso # (Auto) Not Reportable Abs Immat Gran (auto) Not Reportable Absolute Neuts (auto) Not Reportable Absolute Nucleated RBC Not Reportable Total Counted 100 Neutrophils % (Manual) 87 H (46-73) % Band Neutrophils % 4 (0-6) % Lymphocytes % (Manual) 4.0 L (18-44) % Monocytes % (Manual) 3 (3-9) % Eosinophils % (Manual) 2 (0-4) % Nucleated RBC % Not Reportable Abs Neuts (Manual) 10.92 H (1.3-6.7) K/mm3 Abs Lymphs (Manual) 0.48 L (1.1-4.5) K/mm3 Abs Monocytes (Manual) 0.36 (0.1-0.90) K/mm3 Absolute Eos (Manual) 0.24 (0.02-0.50) K/mm3 Platelet Estimate Adequate (Adequate) Schistocytes None seen Sodium 133 L (137-145) mmol/L Potassium 3.9 (3.4-5.0) mmol/L Chloride 103 (98-107) mmol/L Carbon Dioxide 19 L (22-30) mmol/L Anion Gap 11 (4-12) mmol/L BUN 17 (9-20) mg/dL Creatinine 0.70 (0.7-1.3) mg/dL Estim Creat Clear Calc 129 ml/min Estimated GFR > 60 (59 - ) Glucose 109 (65-110) mg/dL Calcium 9.4 (8.4-10.2) mg/dL Total Bilirubin 1.1 (0.2-1.3) mg/dL AST 31 (17-59) U/L ALT 36 (6-50) U/L Alkaline Phosphatase 107 (38-126) U/L Total Protein 8.0 (6.3-8.2) g/dL Albumin 4.6 (3.5-5.1) g/dL Lipase 67 (23-300) U/L Urine Color Yellow (Yellow) Urine Appearance Clear (Clear) Urine pH 5.5 (5.0-9.0) Ur Specific Reading 1.024 (1.001-1.035) Urine Protein Negative (Negative) mg/dL Urine Glucose (UA) Negative (Negative) mg/dL Urine Ketones 1+ H (Negative) mg/dL Ur Blood (Man) Negative (Negative) Urine Nitrate Negative (Negative) Urine Bilirubin Negative (Negative) Urine Urobilinogen 0.2 (<2.0) mg/dL Leukocyte Esterase Rfl Negative (Negative) NERY/UL Discharge Plan Discharge Clinical Impression: Gastroenteritis Patient Disposition: Home, Self-Care Condition: Stable Instructions: Antibiotic Form, Gastroenteritis (ED) Additional Instructions: Your exam today is reassuring overall. Please make sure that you stay well hydrated at home and proceed with a gentle diet. Use Zofran for nausea as needed. This should pass in the next couple of days. If you have any new or worsening symptoms please return to the ER for further evaluation. Prescriptions: New ondansetron 4 mg tablet,disintegrating 4 mg PO Q8H PRN (Reason: nausea and vomiting) Qty: 10 0RF No Action omeprazole 40 mg capsule,delayed release(DR/EC) 40 mg PO BID Qty: 60 0RF omeprazole 40 mg capsule,delayed release(DR/EC) 40 mg PO DAILY Qty: 90 2RF Follow-up/Referrals: Luis,Perez Mayer MD [Primary Care Provider] - Time of Disposition: 01:16
[2023-08-01 00:09] VITALS: BP 108/77; BP 112/78; PULSE 109
[2023-08-01 00:11] VITALS: BP 121/86; PULSE 86
[2023-08-01] MEDS: SODIUM CHLORIDE 0.9% IV 1,000 ML 999 ML IV CONT (00:15)
[2023-08-01 00:44] LABS: Appearance Urine Clear (Clear); Bilirubin Urine Negative (Negative); Blood Urine Negative (Negative); Color Urine Yellow (Yellow); Glucose Urine UA Negative (Negative); Ketones Urine 1+ mg/dL (Negative); Leukocyte Esterase Ur Negative LEU/UL (Negative); Nitrate Urine Negative (Negative); Protein Urine Negative (Negative); Specific Grav Ur 1.024 (1.001-1.035); Urobilinogen Urine 0.2 mg/dL (<2.0); pH Urine 5.5 (5.0-9.0)
[2023-08-01 00:45] LABS: Add Urine Microscopic? NO
== END 2023-08-01 01:28 | disposition home or self-care (01) ==
PROVIDERS: Emergency Medicine; Emergency Provider Physician Assistant; PCP Internal Medicine
DX: K52.9 Noninfective gastroenteritis and colitis, unspecified (principal); K90.0 Celiac disease; E78.5 Hyperlipidemia, unspecified; E66.3 Overweight; Z68.29 Body mass index [BMI] 29.0-29.9, adult; K21.9 Gastro-esophageal reflux disease without esophagitis; L40.9 Psoriasis, unspecified; Z87.891 Personal history of nicotine dependence
CPT/HCPCS: 36415; 80053; 81003; 83690; 85025; 96360; 99283; J7030

== ENCOUNTER 2024-07-19 00:48 | Day surgery (SDC) | payer OTHER, SELFPAY ==
[2024-07-11 13:32] VITALS: BMI 30.2
--- OUTSIDE RECORDS SUMMARY | 2024-07-19 00:51 | XMS_ITS | Clinical Summary ---
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 Role Phone Unavailable Primary Care Provider Unavailabl e Social History Tobacco Use Types Packs/Day Years Used Date Smoking Tobacco: Never Assessed Sex and Gender Information Value Date Recorded Sex Assigned at Not on file Legal Sex Male 8:32 PM CDT Gender Identity Not on file Sexual Orientation Not on file Plan of Treatment Health Maintenance Due Date Last Done Comments Annual Physical 1992 Hepatitis C 10/12/2007 DTaP, Tdap and Td Vaccines ( 1 - Tdap) 2008 Hepatitis B Vaccines (1 of 3 - 19+ 3-dose series) 2008 COVID-19 Vaccine (2023-2 5 season) 2023 Influenza Adult (#1) 2024 HPV Vaccines Aged Out No longer eligi ble based on patient's age to complete this topic Meningococcal B Vaccine Aged Out No l onger eligible based on patient's age to complete this topic Meningococcal Vaccine Aged Out No kimberly hesham eligible based on patient's age to complete this topic Pneumococcal Vaccine: Pediat rics (0 to 5 Years) and At-Risk Patients (6 to 64 Years) Aged Out No longer eligible b ased on patient's age to complete this topic RSV Immunizations Under 20 Months Aged Out No longer eligible based on patient's age to complete this topic
[2024-07-19 12:14] VITALS: BP 124/85; PULSE 97; RESP 18; TEMP 36.2; O2SAT 98; BMI 31.2
--- NOTE | 2024-07-19 12:18 | P.PNAN_ITS ---
Anes - Initial Pre Proc Eval Procedure: Operation Date: 07/19/24 13:15 Proposed Procedures p Esophagogastroduodenoscopy - Julian Cohen MD Date/Time: 07/19/24 12:18 Surgeon: Julian Cohen MD Pre Op Diagnosis: GERD,Celiac disease Patient Data Age: 33 Gender: M Height: 1.75 m Weight: 95.9 kg Last Vital Signs Temp 36.2 C L 07/19/24 12:14 Pulse 97 07/19/24 12:14 Resp 18 07/19/24 12:14 BP 124/85 07/19/24 12:14 Pulse Ox 98 07/19/24 12:14 O2 Del Method Room Air 07/19/24 12:14 Allergies Allergy/AdvReac Type Severity Reaction Status Date / Time Penicillins Allergy Unknown hives Verified 07/19/24 12:13 wheat AdvReac Other Verified 07/19/24 12:13 Home Medications ?Medication ?Instructions ?Recorded ?Confirmed ?Type omeprazole 40 mg capsule,delayed 40 mg PO DAILY #30 caps 05/29/24 07/19/24 Rx release ondansetron 4 mg disintegrating 4 mg PO Q8H PRN nausea and 05/29/24 07/11/24 Rx tablet vomiting #60 tabs Patient hx anesthesia problems: none Family hx anesthesia problems: none Results Review: All pre-operative results and documents have been reviewed as part of the pre- operative evaluation. [facility] Past Medical History Medical History Nausea Overweight (BMI 25.0-29.9) Diarrhea Psoriasis Other and unspecified hyperlipidemia Elevated blood pressure reading Celiac disease Gastroesophageal reflux disease Allergies Surgical History Surgical History History of left knee surgery Due to a torn patella tendon (x5 surgeries) - most recent was 2011 Family History Family History Father Psoriasis Mother Alive and well Social History Social History Smoking packs per day: 1 Smoking cigarettes per day: 20.0 Years smoked: 8 Smoking pack-years: 8.00 Smoking status: Current every day smoker Tobacco type: cigarettes Second hand tobacco smoke exposure: No Smoking end date: 05/01/13 Alcohol intake: current Drinks per week: 1 Alcohol use details: 1-2 glasses of wine monthly Substance use: never Substance use type: does not use Lack of Transportation: No Lack of Food: Never True Current Housing: I Have Housing Concerned About Future Housing: No Difficulty Paying Gas/Electric Bills: No Difficulty Paying for Meds: No Currently Unemployed: No Education: Master's Degree or Higher Difficulty w/ Childcare or Family Care: No Living arrangements: with family Occupation/Education: occupation Gender identity (if verbalized by the patient): Male Sexual Orientation (if Verbalized by the Patient): Straight or Heterosexual Spiritual care concerns: No Agree to blood products: Yes Anes - Eval Final PreProcedure Day of Procedure 07/19/24 12:18 Patient weight: overweight Heart: regular rate and rhythm Lungs: clear to auscultation Airway: Mallampati scale class II Neurological: alert and oriented Last oral intake: >/= 8 hours ASA classification: II Emergent: no Anesthetic plan: proceed Anesthesia type and monitoring: general GIVS and standard monitoring Results Review: All pre-operative results and documents have been reviewed as part of the pre- operative evaluation. Informed Consent: The patient's anesthetic plan and its attendant risks and benefits were discussed with the patient/family/POA. Questions were solicited and answers provided to the satisfaction of the patient/family/POA.
[2024-07-19] MEDS: LACTATED RINGERS 1,000 ML 150 ML IV CONT (12:23)
--- NOTE | 2024-07-19 12:36 | PM.HPGS ---
History of Present Illness History of Present Illness Consent: Risks, benefits, and alternatives have been discussed and questions answered. Patient agrees to proceed with procedure. Chief complaint: GERD,Celiac disease Narrative: Anurag Huff is a 33 year old male here for egd, known celiac disease confirmed by biopsy on 100% gluten free diet, also gerd on omeprazole since 2011 but recently more symptomatic specially at bedtime, last egd about 5 years ago Review of Systems Review of Systems: All systems reviewed & are unremarkable except as noted in HPI and below PMFSH Past Medical History Medical History Nausea Overweight (BMI 25.0-29.9) Diarrhea Psoriasis Other and unspecified hyperlipidemia Elevated blood pressure reading Celiac disease Gastroesophageal reflux disease Allergies Surgical History Surgical History History of left knee surgery Due to a torn patella tendon (x5 surgeries) - most recent was 2011 Family History Family History Father Psoriasis Mother Alive and well Social History Social History Smoking packs per day: 1 Smoking cigarettes per day: 20.0 Years smoked: 8 Smoking pack-years: 8.00 Smoking status: Current every day smoker Tobacco type: cigarettes Second hand tobacco smoke exposure: No Smoking end date: 05/01/13 Alcohol intake: current Drinks per week: 1 Alcohol use details: 1-2 glasses of wine monthly Substance use: never Substance use type: does not use Lack of Transportation: No Lack of Food: Never True Current Housing: I Have Housing Concerned About Future Housing: No Difficulty Paying Gas/Electric Bills: No Difficulty Paying for Meds: No Currently Unemployed: No Education: Master's Degree or Higher Difficulty w/ Childcare or Family Care: No Living arrangements: with family Occupation/Education: occupation Gender identity (if verbalized by the patient): Male Sexual Orientation (if Verbalized by the Patient): Straight or Heterosexual Spiritual care concerns: No Agree to blood products: Yes Meds Home Medications and Allergies Home Medications ?Medication ?Instructions ?Recorded ?Confirmed ?Type omeprazole 40 mg capsule,delayed 40 mg PO DAILY #30 caps 05/29/24 07/19/24 Rx release ondansetron 4 mg disintegrating 4 mg PO Q8H PRN nausea and 05/29/24 07/11/24 Rx tablet vomiting #60 tabs Allergies Allergy/AdvReac Type Severity Reaction Status Date / Time Penicillins Allergy Unknown hives Verified 07/19/24 12:13 wheat AdvReac Other Verified 07/19/24 12:13 Vital Signs Vital Signs - 24 hr 07/19/24 12:14 Temperature 97.2 F L Pulse Rate 97 Respiratory Rate 18 Blood Pressure 124/85 Pulse Oximetry 98 Oxygen Delivery Room Air Exam Const: General: comfortable and no acute distress HENMT: Face/Nose/Sinus: Normal nares present Eyes: General: appearance normal, both eyes and all related structures Neck: Neck: no JVD Resp: Auscultation: clear to auscultation bilaterally Cardio: Rate: regular rate Rhythm: regular rhythm GI: Inspection: non-distended GI Palp: Yes Soft to palpation Skin: General skin exam: normal color Neuro: General: gait normal Speech: normal speech Extrem: General: normal to inspection Psych: Mental Status: mental status grossly normal Assessment and Plan Assessment and plan (1) Celiac disease: Code(s): K90.0 - Celiac disease Status: Acute Assessment and Plan: egd (2) Gastroesophageal reflux disease: Code(s): K21.9 - Gastro-esophageal reflux disease without esophagitis Status: Acute Assessment and Plan: on ppi
[2024-07-19] MEDS: BENZOCAINE (*SP) 60 ML SPRAY CAN (HURRICAINE) 1 SPRAY MUCOUS MEM (12:41)
[2024-07-19 12:48] VITALS: BP 102/69; PULSE 89; RESP 20; O2SAT 96
[2024-07-19 12:58] VITALS: BP 112/82; PULSE 81; RESP 23; O2SAT 97
[2024-07-19 13:08] VITALS: BP 114/83; PULSE 81; RESP 21; O2SAT 97
== END 2024-07-19 13:21 | disposition home or self-care (01) ==
PROVIDERS: Referring Provider Internal Medicine Gastroenterology; Visit Provider Internal Medicine Gastroenterology
PROC: 0DJ08ZZ Inspection of Upper Intestinal Tract, Via Natural or Artificial Opening Endoscopic (ICD-10-PCS; CPT 43239; principal; 2024-07-19 13:15)
DX: K21.9 Gastro-esophageal reflux disease without esophagitis (principal); K90.0 Celiac disease; K44.9 Diaphragmatic hernia without obstruction or gangrene; Z87.891 Personal history of nicotine dependence
CPT/HCPCS: 43239; 88305; J2003; J2704; J7120